=== PATIENT | female | born 1980 | race Caucasian/White ===

== ENCOUNTER 2016-12-10 07:52 | Emergency (ER) | payer BC, OTHER ==
[~2016-12-10] VITALS: Ht 171.4 cm; Wt 100.0 kg
[~2016-12-10 07:52] MED LIST: LORTA5 PO
[2016-12-10 07:53] VITALS: BP 127/72; PULSE 73; RESP 17; TEMP 97.8; O2SAT 98
--- NOTE | 2016-12-10 08:15 | PD ---
HPI Chief Complaint: Complaint Time Seen by Provider: 08:02 Travel History International Travel<30 days: No Contact w/Intl Traveler<30days: No Traveled to known affect area: No History of Present Illness HPI 36-year-old female transgender complains of hematuria. Patient states that she noticed hematuria this morning. Patient denies any back pain. Patient denies any dysuria or frequency. Patient denies any fever chills. Patient denies any history of kidney stone. PFSH Past Medical History Cancer: No Cardiovascular Problems: No Diabetes: No Diminished Hearing: No Endocrine: No Genitourinary: No Hepatitis: No Hiatal Hernia: No Immune Disorder: No Musculoskeletal: Yes (WEAK RIGHT ANKLE; SAUL KNEES OCCAS BECOME TWISTED) Neurologic: No Psychiatric: No Reproductive: Yes (MALE TO FEMALE TRANSGENDER) Respiratory: No Thyroid Disease: No Tetanus Vaccination: > 5 Years Influenza Vaccination: Yes ?: Not Past Surgical History Abdominal Aneurysm Repair: Yes (gallbladder removed) Abdominal Surgery: Yes (gallbladder removal/gallstones) AICD: No Body Medical Devices: NONE Joint Replacement: No Pacemaker: No Other Surgery: No Social History Alcohol Use: No Tobacco Use: No Substance Use: No Allergies-Medications (Allergen,Severity, Reaction): Coded Allergies: Codeine (Unverified Allergy, Severe, Hives, 12/25/14) RESPIRATORY Latex (Verified Allergy, Severe, ITCH, 12/26/14) Reported Meds & Prescriptions Reported Meds & Active Scripts Active Review of Systems General / Constitutional: No: Fever Eyes: No: Visual changes HENT: No: Headaches Cardiovascular: No: Chest Pain or Discomfort Respiratory: No: Shortness of Breath Gastrointestinal: No: Abdominal Pain Genitourinary: No: Dysuria Musculoskeletal: No: Pain Skin: No Rash Neurologic: No: Weakness Psychiatric: No: Depression Endocrine: No: Polydipsia Hematologic/Lymphatic: No: Easy Bruising Physical Exam Narrative GENERAL: Well-nourished, well-developed patient. SKIN: Focused skin assessment warm/dry. HEAD: Normocephalic. EYES: No scleral icterus. No injection or drainage. NECK: Supple, trachea midline. No JVD or lymphadenopathy. CARDIOVASCULAR: Regular rate and rhythm without murmurs, gallops, or rubs. RESPIRATORY: Breath sounds equal bilaterally. No accessory muscle use. GASTROINTESTINAL: Abdomen soft, non-tender, nondistended. MUSCULOSKELETAL: No cyanosis, or edema. BACK: Nontender without obvious deformity. No CVA tenderness. exam: Genitalia typical of a male. No urethral discharge or lesion noted. No tenderness on palpation of the testicle. Data Data Last Documented VS Vital Signs Date Time Temp Pulse Resp B/P Pulse Ox O2 Delivery O2 Flow Rate FiO2 12/10/16 07:53 97.8 73 17 127/72 98 Orders Urinalysis - C+S If Indicated (12/10/16 08:10) Ct Abd/Pel W/O Iv Contrast (12/10/16 08:10) Us Testicles W Doppler (12/10/16 ) Labs Laboratory Tests Test 12/10/16 08:11 Urine Color YELLOW Urine Turbidity HAZY Urine pH 5.0 Urine Specific [place] 1.011 Urine Protein NEG mg/dL Urine Glucose (UA) NEG mg/dL Urine Ketones NEG mg/dL Urine Occult Blood LARGE Urine Nitrite NEG Urine Bilirubin NEG Urine Urobilinogen LESS THAN 2.0 MG/DL Urine Leukocyte Esterase NEG Urine RBC /hpf Urine WBC LESS THAN 1 /hpf Urine Squamous Epithelial <1 /hpf Cells Urine Mucus FEW /lpf Microscopic Urinalysis Comment CULT NOT INDICATED MDM Medical Decision Making Medical Screen Exam Complete: Yes Emergency Medical Condition: Yes Interpretation(s) 9:05 AM. UA positive for RBC. Differential Diagnosis Differential diagnosis including urethritis, UTI, pyelonephritis, nephrolithiasis, lesions. Narrative Course 36-year-old female, transgender, with asymptomatic hematuria. Diagnosis Primary Impression: Hematuria Patient Instructions: General Instructions Additional Instructions: Follow-up with urologist. Return if persistent bleeding or worse. Med/Other Pt SpecificInfo: No Meds Exist/No RX given Disposition: 01 DISCHARGE HOME Condition: Stable Nicho Odom MD December 10, 2016 08:15
[2016-12-10 08:28] LABS: BLOOD, URINE LARGE (NEG); COMMENT (UR) CULT NOT INDICATED; CULTURE IF INDICATED CULT NOT INDICATED; GLUCOSE,URINE NEG (NEG); KETONE, URINE NEG (NEG); MUCUS URINE FEW /lpf (OCC); NITRITE,URINE NEG (NEG); SQUAMOUS EPITHELIAL CELL URINE <1 /hpf (0-5); URINE COLOR YELLOW (YELLW/STRAW)
--- NOTE | 2016-12-10 09:35 | RADRPT ---
EXAM DATE/TIME: 12/10/2016 08:33 [facility] COMPARISON: No previous studies available for comparison. INDICATIONS : Hematuria. ORAL CONTRAST: No oral contrast ingested. RADIATION DOSE: 11.43 CTDIvol (mGy) MEDICAL HISTORY : None SURGICAL HISTORY : None. ENCOUNTER: Initial ACUITY: 1 day PAIN SCALE: 0/10 LOCATION: lower quadrant TECHNIQUE: Volumetric scanning of the abdomen and pelvis was performed. Using automated exposure control and ad justment of the mA and/or kV according to patient size, radiation dose was kept as low as reasonably achievable to obtain optimal diagnostic quality images. FINDINGS: LOWER LUNGS: The visualized lower lungs are clear. LIVER: The liver is diffusely heterogeneous in density in geographic fashion suggestive of steatosis, howeve r there is a single area of rounded mild relative hypodensity in the inferior aspect of segment wh ich is somewhat more worrisome for a focal mass process. There is no evidence of biliary ductal dilat ation. The gallbladder is surgically absent. SPLEEN: Normal size without lesion. PANCREAS: Within normal limits. KIDNEYS: Normal in size and shape. There is no mass, stone, or hydronephrosis. ADRENAL GLANDS: Within normal limits. VASCULAR: There is no aortic aneurysm. BOWEL/MESENTERY: The stomach, small bowel, and colon demonstrate no acute abnormality. There is no free intraperitone al air or fluid. ABDOMINAL WALL: Within normal limits. RETROPERITONEUM: There is no lymphadenopathy. BLADDER: No wall thickening or mass. REPRODUCTIVE: The patient is trans-gender. The prostate is normal in appearance. There is a rounded mass in the rig ht inguinal canal which is concerningly high and may be an undescended testicle. The contralateral le ft testicle is tucked. INGUINAL: There is no lymphadenopathy or hernia. MUSCULOSKELETAL: Within normal limits for patient age. CONCLUSION: Abnormal liver appearance. Recommend elective workup with contrast MRI. Transgender patient with mass in the right inguinal canal worrisome for undescended testicle. Correla tion with physical exam recommended. The contralateral left testicle appears to be tucked in a high l ocation. If there are 2 palpable testicles on physical exam, the patient might be further screened wi th ultrasound imaging after removal of any restrictive undergarments to determine whether there is st ill a mass present in the inguinal canal region. Duane Jimenez MD on December 10, 2016 at 9:11 Board Certified Radiologist. This report was verified electronically.
--- NOTE | 2016-12-10 11:51 | RADRPT ---
EXAM DATE/TIME: 12/10/2016 10:16 [facility] COMPARISON: No previous studies available for comparison. INDICATIONS : Possible mass on CT in inguinal region. MEDICAL HISTORY : Male to female transgender. Heartburn. Hematuria. SURGICAL HISTORY : Cholecystectomy. ENCOUNTER: Initial ACUITY: 1 day PAIN SCORE: 0/10 LOCATION: Left testicles. MEASUREMENTS: RIGHT TESTICLE: 4.3 x 1.0 x 2.0 cm LEFT TESTICLE: 3.9 x 2.0 x 2.6cm FINDINGS: RIGHT TESTICLE: Homogeneous echotexture without intra or extratesticular mass. Blood flow is symmetric and within no rmal limits. No hydrocele or varicocele. Epididymis is within normal limits. No evidence of separat e mass within the right inguinal canal. LEFT TESTICLE: Homogeneous echotexture without intra or extratesticular mass. Blood flow is symmetric and within no rmal limits. No hydrocele or varicocele. Epididymis is within normal limits. SCROTUM: Within normal limits. CONCLUSION: Normal exam. Normal testicles. No evidence of mass in the right inguinal canal Duane Jimenez MD on December 10, 2016 at 11:48 Board Certified Radiologist. This report was verified electronically.
== END 2016-12-10 12:01 | disposition home or self-care (01) ==
LOC: NEPC 07:52
DX: R31.9 Hematuria, unspecified (principal)
CPT/HCPCS: 74176; 76870; 81001; 93975

== ENCOUNTER 2017-02-25 12:01 | Emergency (ER) | payer OTHER ==
[~2017-02-25] VITALS: Ht 170.2 cm; Wt 104.5 kg
[2017-02-25 12:03] VITALS: BP 116/69; PULSE 98; RESP 20; TEMP 97.9; O2SAT 96
--- NOTE | 2017-02-25 12:51 | PD ---
HPI Chief Complaint: ENT Complaint Time Seen by Provider: 12:51 Travel History International Travel<30 days: No Contact w/Intl Traveler<30days: No Traveled to known affect area: No History of Present Illness HPI 36-year-old female presents to emergency department for evaluation of right ear pain since this morning. Patient states that it began as an ache but has worsened throughout the day. Denies any trauma. Denies any fever or chills. Denies any changes in hearing. Denies any drainage. Denies any other symptoms at this time. History Past Medical Histgory Hx Cancer: No Social History Alcohol Use: No Tobacco Use: No Allergies-Medications (Allergen,Severity, Reaction): Coded Allergies: Codeine (Unverified Allergy, Severe, Hives, 02/25/17) RESPIRATORY Latex (Verified Allergy, Severe, ITCH, 02/25/17) Reported Meds & Prescriptions Reported Meds & Active Scripts Active No Active Prescriptions or Reported Medications Review of Systems Except as stated in HPI: all other systems reviewed are Neg Physical Exam Narrative GENERAL: Well-nourished, well-developed female patient in no acute distress SKIN: Focused skin assessment warm/dry. HEAD: Normocephalic. No Mastoid tenderness EARS: Bilateral pinnae and external canals appear within normal limits. Bilateral tympanic membranes without erythema, dullness or perforation. EYES: No scleral icterus. No injection or drainage. NECK: Supple, trachea midline. No JVD or lymphadenopathy. CARDIOVASCULAR: Regular rate and rhythm without murmurs, gallops, or rubs. RESPIRATORY: Breath sounds equal bilaterally. No accessory muscle use. Data Data Last Documented VS Vital Signs Date Time Temp Pulse Resp B/P Pulse Ox O2 Delivery O2 Flow Rate FiO2 02/25/17 12:03 97.9 98 20 116/69 96 Room Air [facility] Medical Screen Exam Complete: Yes Emergency Medical Condition: No Differential Diagnosis otalgia Narrative Course 36-year-old female presents to the emergency department for evaluation of right ear pain since this morning. Physical exam is reassuring. There is no significant erythema. There is no effusion. There is no edema. I'm encouraged patient to take ibuprofen and to avoid foreign bodies in the ear. She agrees with this plan of care and to return immediately with any acute worsening of symptoms. At this time there are no urgent or emergent needs for medical intervention identified. A medical screening exam was performed: At the time of evaluation the presenting medical condition was determined not to be of an emergent nature. The patient was given the option of receiving additional care, but declined. Patient was given options for additional community resources from which to obtain care. The Patient Has Been advised to seek medical attention for their presenting complaint. The patient has been advised to return to the ER at any time if an emergent condition develops. Primary Impression: Encounter for medical screening examination Scripts No Active Prescriptions or Reported Meds Condition: Yissel Lopez Feb 25, 2017 12:51
== END 2017-02-25 12:58 | disposition left against medical advice (07) ==
LOC: NEPK 12:01
DX: H92.01 Otalgia, right ear (principal); Z88.5 Allergy status to narcotic agent
CPT/HCPCS: 99281

== ENCOUNTER 2017-03-24 13:05 | Emergency (ER) | payer OTHER ==
[~2017-03-24] VITALS: Ht 170.2 cm; Wt 102.0 kg
[2017-03-24 13:06] VITALS: BP 122/76; PULSE 76; RESP 14; TEMP 98.5; O2SAT 97
--- NOTE | 2017-03-24 13:14 | PD ---
Physical Exam Date Seen by Provider: Mar 24, 2017 Time Seen by Provider: 13:13 Narrative 36 YOWF C/O R KNEE INJURY THIS AM. 6 PAIN VS REVIEWED AWAITING BED PLACEMENT Data Data Last Documented VS Vital Signs Date Time Temp Pulse Resp B/P Pulse Ox O2 Delivery O2 Flow Rate FiO2 03/24/17 13:06 98.5 76 14 122/76 97 Room Air MDM Supervised Visit with CARLITA: No Scripts No Active Prescriptions or Reported Meds Adriel Garces Mar 24, 2017 13:14
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
[2017-03-24] MEDS ORDERED: NON-500T13 PO (13:30)
[2017-03-24] MEDS ORDERED: IBUPROFEN 600 MG TAB PO ONE (13:30)
[2017-03-24] MEDS ORDERED: IBUP-232 PO (13:30)
== END 2017-03-24 13:59 | disposition home or self-care (01) ==
LOC: NEPK 13:05
DX: S83.91XA Sprain of unspecified site of right knee, initial encounter (principal); X50.1XXA Overexertion from prolonged static or awkward postures, initial encounter; Y93.01 Activity, walking, marching and hiking; Y92.009 Unspecified place in unspecified non-institutional (private) residence as the place of occurrence of the external cause
CPT/HCPCS: 99282; L1830

== ENCOUNTER 2018-01-13 12:12 | Emergency (ER) | payer SELFPAY ==
[~2018-01-13] VITALS: Ht 170.2 cm; Wt 104.5 kg
[~2018-01-13 12:12] MED LIST changes: +IBUP-232 PO; -LORTA5 PO; +NON-500T13 PO
[2018-01-13 12:21] VITALS: BP 126/79; PULSE 87; RESP 18; TEMP 98.3; O2SAT 95
[2018-01-13] MEDS ORDERED: CETI10CA3 (12:39)
[2018-01-13] MEDS ORDERED: SODIUM CHLOR 0.9% 1000 ML INJ 1,000 ML IV ONE (12:41)
[2018-01-13] MEDS ORDERED: diphenhydrAMINE HCL 50 MG/ML VIAL IVP ONE (12:45)
[2018-01-13] MEDS ORDERED: PROCHLORPERAZINE INJ 10 MG/2 ML VIAL IVP ONE (12:45)
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
--- NOTE | 2018-01-13 14:11 | RADRPT ---
EXAM DATE: 01/13/2018 2:07 PM EDT AGE/SEX: 37 years / Female INDICATIONS: Migraine. CLINICAL DATA: This is the patient's initial encounter. Patient reports that signs and symptoms have been present for 2 days and indicates a pain score of 6/10. MEDICAL/SURGICAL HISTORY: Aneurysm, abdominal. Abdominal aortic aneurysm repair. Cholecystectomy. RADIATION DOSE: 56.35 CTDI (mGy) COMPARISON: No prior [facility] exams available for comparison. TECHNIQUE: CT of the head without contrast. Using automated exposure control and adjustment of the mA and/or kV according to patient size, radiation dose was kept as low as reasonably achievable to ob tain optimal diagnostic quality images. FINDINGS: Cerebrum: The ventricles are normal for age. No evidence of midline shift, mass lesion, hemorrhage or acute infarction. No extraaxial fluid collections are seen. Posterior Fossa: The cerebellum and brainstem are intact. The 4th ventricle is midline. The cerebe llopontine angle is unremarkable. Extracranial: The visualized portion of the orbits is intact. Skull: The calvaria is intact. No evidence of skull fracture. CONCLUSION: 1. Negative CT Head non contrast. Electronically signed by: Misha Rosales MD 01/13/2018 2:09 PM EDT
[2018-01-13] MEDS ORDERED: KETOROLAC TROMETHAMINE 30 MG/ML (IVP) VIAL IV PUSH ONE (14:15)
[2018-01-13 14:26] VITALS: BP 115/66; PULSE 80; RESP 16; O2SAT 97
[2018-01-13] MEDS ORDERED: PROC10TA PO (15:07)
== END 2018-01-13 15:28 | disposition home or self-care (01) ==
LOC: NEPE 12:12
DX: G44.209 Tension-type headache, unspecified, not intractable (principal)
CPT/HCPCS: 70450; 96374; 96375; 99284; J0780; J1200; J1885; J7030